=== PATIENT | female | born 1990 | race Caucasian/White ===

== ENCOUNTER → 2021-04-19 | Outpatient (CLI) ==
[~2021-04-19] MED LIST: DULO30CA9 PO; NEXI20CA PO; STOO100C25 PO
== END ==
LOC: EDUNIT# 11:45 → M LABSMTC 12:03
PROVIDERS: ATTEND Anesthesiology
DX: Z01.818 Encounter for other preprocedural examination (principal); Z20.822 Contact with and (suspected) exposure to COVID-19

== ENCOUNTER → 2021-06-15 | Outpatient (CLI) | payer OTHER | LOC: M LABSMTC 11:10 | PROVIDERS: ATTEND Anesthesiology | DX: Z01.812 Encounter for preprocedural laboratory examination (principal); Z20.822 Contact with and (suspected) exposure to COVID-19 ==

== ENCOUNTER 2021-06-20 09:07 | Day surgery (SDC) | payer OTHER ==
[~2021-06-20] VITALS: Ht 154.9 cm; Wt 71.2 kg
[~2021-06-20 09:07] MED LIST changes: +NS 1,000 ML IV ONE
[2021-06-20] MEDS ORDERED: LIDOCAINE 2% 100MG/5ML SDV (FOR ANES.) As Ordered ONE (10:59)
[2021-06-20] MEDS ORDERED: propofoL 200 MG/20 ML VIAL As Ordered ONE (10:59)
[2021-06-20] MEDS ORDERED: fentaNYL 100 MCG/2 ML INJECTION (J3010) As Ordered ONE (10:59)
[2021-06-20] MEDS ORDERED: ONDANSETRON 4MG/2ML VIAL As Ordered ONE (11:10)
--- NOTE | 2021-06-20 11:37 | ROOR ---
Patient Name: Regina Engel Procedure Date: 06/20/2021 10:54 AM Date of : 1990 Age: 31 Room: [facility] Gender: Female Note Status: Finalized Procedure: Upper GI endoscopy Indications: Epigastric abdominal pain, Heartburn, Suspected gastro-esophageal reflux disease Providers: Siddhartha Joshua MD Referring MD: Roderick DEMARCO MD Requesting Provider: Medicines: Monitored Anesthesia Care Complications: No immediate complications. Procedure: Pre-Anesthesia Assessment: - Prior to the procedure, a History and Physical was performed, and patient medications and allergies were reviewed. The patient is competent. The risks and benefits of the procedure and the sedation options and risks were discussed with the patient. All questions were answered and informed consent was obtained. Patient identification and proposed procedure were verified by the physician, the nurse and the anesthesiologist in the procedure room. Mental Status Examination: alert and oriented. Airway Examination: normal oropharyngeal airway and neck mobility. Respiratory Examination: clear to auscultation. CV Examination: normal. Prophylactic Antibiotics: The patient does not require prophylactic antibiotics. Prior Anticoagulants: The patient has taken no previous anticoagulant or antiplatelet agents. ASA Grade Assessment: II - A patient with mild systemic disease. After reviewing the risks and benefits, the patient was deemed in satisfactory condition to undergo the procedure. The anesthesia plan was to use monitored anesthesia care (MAC). Immediately prior to administration of medications, the patient was re-assessed for adequacy to receive sedatives. The heart rate, respiratory rate, oxygen saturations, blood pressure, adequacy of pulmonary ventilation, and response to care were monitored throughout the procedure. The physical status of the patient was re-assessed after the procedure. The Endoscope was introduced through the mouth, and advanced to the second part of duodenum. The upper GI endoscopy was accomplished without difficulty. The patient tolerated the procedure well. Findings: The examined esophagus was normal. The Z-line was regular and was found 37 cm from the incisors. Scattered moderate inflammation characterized by erosions, friability and granularity was found in the gastric antrum. Biopsies were taken with a cold forceps for Helicobacter pylori testing. Verification of patient identification for the specimen was done by the physician and nurse using the patient's name, date and medical record number. Estimated blood loss was minimal. The duodenal bulb and second portion of the duodenum were normal. Biopsies for histology were taken with a cold forceps for evaluation of celiac disease. Impression: - Normal esophagus. - Z-line regular, 37 cm from the incisors. - Gastritis. Biopsied. - Normal duodenal bulb and second portion of the duodenum. Biopsied. Recommendation: - Patient has a contact number available for emergencies. The signs and symptoms of potential delayed complications were discussed with the patient. Return to normal activities tomorrow. Written discharge instructions were provided to the patient. - High fiber diet. - Continue present medications. - Await pathology results. - Follow an antireflux regimen. - Telephone GI clinic for pathology results in 2 weeks. - Return to GI clinic if persistent symptoms or new symptoms. - Return to primary care physician. Procedure Code(s): --- Professional --- 70711, Esophagogastroduodenoscopy, flexible, transoral; with biopsy, single or multiple Diagnosis Code(s): --- Professional --- K29.70, Gastritis, unspecified, without bleeding R10.13, Epigastric pain R12, Heartburn CPT copyright 2019 [employer]. All rights reserved. The codes documented in this report are preliminary and upon fashion consultant selling review may be revised to meet current compliance requirements. Siddhartha Joshua MD Siddhartha Joshua MD 06/20/2021 11:36:35 AM Electronically signed by Siddhartha Joshua MD Number of Addenda: 0 Note Initiated On: 06/20/2021 10:54 AM Estimated Blood Loss: Estimated blood loss was minimal.
--- NOTE | 2021-06-20 11:41 | ROOR ---
Patient Name: Regina Engel Procedure Date: 06/20/2021 10:55 AM Date of : 1990 Age: 31 Room: [facility] Gender: Female Note Status: Finalized Procedure: Colonoscopy Indications: Hematochezia Providers: Siddhartha Joshua MD Referring MD: Roderick DEMARCO MD Requesting Provider: Medicines: Monitored Anesthesia Care Complications: No immediate complications. Procedure: Pre-Anesthesia Assessment: - Prior to the procedure, a History and Physical was performed, and patient medications and allergies were reviewed. The patient is competent. The risks and benefits of the procedure and the sedation options and risks were discussed with the patient. All questions were answered and informed consent was obtained. Patient identification and proposed procedure were verified by the physician, the nurse and the anesthesiologist in the procedure room. Mental Status Examination: alert and oriented. Airway Examination: normal oropharyngeal airway and neck mobility. Respiratory Examination: clear to auscultation. CV Examination: normal. Prophylactic Antibiotics: The patient does not require prophylactic antibiotics. Prior Anticoagulants: The patient has taken no previous anticoagulant or antiplatelet agents. ASA Grade Assessment: II - A patient with mild systemic disease. After reviewing the risks and benefits, the patient was deemed in satisfactory condition to undergo the procedure. The anesthesia plan was to use monitored anesthesia care (MAC). Immediately prior to administration of medications, the patient was re-assessed for adequacy to receive sedatives. The heart rate, respiratory rate, oxygen saturations, blood pressure, adequacy of pulmonary ventilation, and response to care were monitored throughout the procedure. The physical status of the patient was re-assessed after the procedure. The Colonoscope was introduced through the anus and advanced to the terminal ileum, with identification of the appendiceal orifice and IC valve. The colonoscopy was performed without difficulty. The patient tolerated the procedure well. The quality of the bowel preparation was good. The terminal ileum, ileocecal valve, appendiceal orifice, and rectum were photographed. Scope insertion time was 2 minutes. Scope withdrawal time was 9 minutes. The total duration of the procedure was 12 minutes. Findings: The perianal and digital rectal examinations were normal. The terminal ileum appeared normal. Patchy mild inflammation characterized by altered vascularity, erosions, erythema and granularity was found in the cecum. Biopsies were taken with a cold forceps for histology. Verification of patient identification for the specimen was done by the physician and nurse using the patient's name, date and medical record number. Non-bleeding external and internal hemorrhoids were found during retroflexion. The hemorrhoids were medium-sized. Impression: - The examined portion of the ileum was normal. - Patchy mild inflammation was found in the cecum secondary to colitis. Biopsied. - Non-bleeding external and internal hemorrhoids. Recommendation: - Patient has a contact number available for emergencies. The signs and symptoms of potential delayed complications were discussed with the patient. Return to normal activities tomorrow. Written discharge instructions were provided to the patient. - High fiber diet. - Continue present medications. - Await pathology results. - Repeat colonoscopy at age 51 for screening purposes. - Telephone GI clinic for pathology results in 2 weeks. - Return to GI clinic if persistent symptoms or new symptoms. - Return to primary care physician. Procedure Code(s): --- Professional --- 11251, Colonoscopy, flexible; with biopsy, single or multiple Diagnosis Code(s): --- Professional --- K64.8, Other hemorrhoids K52.9, Noninfective gastroenteritis and colitis, unspecified K92.1, Melena (includes Hematochezia) CPT copyright 2019 [employer]. All rights reserved. The codes documented in this report are preliminary and upon elevator constructor electric review may be revised to meet current compliance requirements. Siddhartha Joshua MD Siddhartha Joshua MD 06/20/2021 11:40:45 AM Electronically signed by Siddhartha Joshua MD Number of Addenda: 0 Note Initiated On: 06/20/2021 10:55 AM Estimated Blood Loss: Estimated blood loss was minimal.
[2021-06-20 11:58] VITALS: BP 131/82
== END 2021-06-20 11:59 | disposition home or self-care (01) ==
LOC: M OPP 09:07
PROVIDERS: ATTEND Internal Medicine Gastroenterology
DX: K63.5 Polyp of colon (principal); K52.9 Noninfective gastroenteritis and colitis, unspecified; K64.8 Other hemorrhoids; K92.1 Melena; K29.70 Gastritis, unspecified, without bleeding; R10.13 Epigastric pain
CPT/HCPCS: 43239; 45380; 88305; J2405; J3010